=== PATIENT | male | born 1990 | race Caucasian/White ===

== ENCOUNTER 2021-10-24 10:57 | Emergency (ER) | payer MEDICAID ==
[~2021-10-24] VITALS: Ht 165.1 cm; Wt 77.7 kg
[2021-10-24 11:08] VITALS: BP 123/68
[2021-10-24 12:33] LABS: COVID AG,FIA SOURCE NASAL SWAB
[2021-10-24 13:01] LABS: INFLUENZA TYPE A NEGATIVE FOR TYPE A (NEGATIVE); INFLUENZA TYPE B NEGATIVE FOR TYPE B (NEGATIVE)
[2021-10-24] MEDS ORDERED: BENZ-70 PO (13:30)
[2021-10-24] MEDS ORDERED: IBUP-2070 PO (13:30)
[2021-10-24] MEDS ORDERED: BENZ1LOZ50 PO (13:30)
== END 2021-10-24 13:35 | disposition home or self-care (01) ==
LOC: EMS 10:57
DX: B34.9 Viral infection, unspecified (principal); J02.9 Acute pharyngitis, unspecified; F17.210 Nicotine dependence, cigarettes, uncomplicated; R00.0 Tachycardia, unspecified; Z20.822 Contact with and (suspected) exposure to COVID-19
CPT/HCPCS: 87804; 99283